=== PATIENT | female | born 1945 | race Caucasian/White ===

== ENCOUNTER 2016-11-07 08:31 | Emergency (ER) | payer MEDICARE | END 2016-11-07 10:35 | disposition home or self-care (01) | LOC: FER 08:31 | DX: S00.83XA Contusion of other part of head, initial encounter (principal); S80.01XA Contusion of right knee, initial encounter; I10 Essential (primary) hypertension; I25.2 Old myocardial infarction; Z23 Encounter for immunization; Z88.5 Allergy status to narcotic agent; Z91.041 Radiographic dye allergy status; Z79.82 Long term (current) use of aspirin; Z79.899 Other long term (current) drug therapy; W19.XXXA Unspecified fall, initial encounter; Y93.01 Activity, walking, marching and hiking; Y92.480 Sidewalk as the place of occurrence of the external cause | CPT/HCPCS: 70450; 90471; 90715; 93005 ==

== ENCOUNTER 2021-01-15 06:09 | Emergency (ER) | payer MEDICARE, OTHER ==
[2021-01-15 07:13] LABS: BASOPHIL 0.6 % (0-2); HCT 45.1 % (37.0-47.0); HGB 14.1 g/dl (12.5-16.0); MCH 29.8 pg (25.0-31.0); MCHC 31.3 g/dL (32.0-36.0); MCV 95.3 fL (78.0-100.0); MONOCYTE 10.1 % (0-12); NRBC 0; PLT 266 K/uL (150-400); RBC 4.73 M/uL (4.20-5.40); RDW 15.1 % (11.5-14.0); WBC 7.1 K/uL (4.0-10.5)
[2021-01-15 07:28] LABS: BILIRUBIN 1+ mg/dL (NEGATIVE); BLOOD TRACE-INTACT Ery/uL (NEGATIVE); CLARITY CLEAR (CLEAR); COLOR YELLOW (YELLOW); GLUCOSE (U) NORMAL (NORMAL); LEUKOCYTES NEGATIVE Leu/uL (NEGATIVE); NITRITE NEGATIVE (NEGATIVE); PROTEIN TRACE (LOW) mg/dL (NEGATIVE); SPECIFIC GRAVITY >=1.030 (1.001-1.030); UROBILINOGEN 0.2 mg/dL (0.2-1.0)
[2021-01-15 07:36] LABS: BACTERIA TRACE
[2021-01-15 07:40] LABS: ALBUMIN 3.9 g/dL (3.4-5.0); BILIRUBIN - TOTAL 0.7 mg/dL (0.2-1.0); CREATININE 1.08 mg/dL (0.51-0.95); GLOBULIN (CALCULATION) 3.3 g/dL; POTASSIUM 4.3 mmol/L (3.5-5.1); TOTAL PROTEIN 7.2 g/dL (6.4-8.2)
[2021-01-15] MEDS ORDERED: AUGMENTIN250 MG PO (08:42)
[2021-01-15] MEDS ORDERED: ONDANSETRON ODT4 MG PO (08:42)
== END 2021-01-15 09:08 | disposition home or self-care (01) ==
LOC: FER 06:09
PROVIDERS: Emergency Medicine
DX: R11.2 Nausea with vomiting, unspecified (principal); R78.81 Bacteremia; Z86.73 Personal history of transient ischemic attack (TIA), and cerebral infarction without residual deficits; Z88.8 Allergy status to other drugs, medicaments and biological substances; Z88.5 Allergy status to narcotic agent
CPT/HCPCS: 36415; 80053; 81001; 83690; 84484; 85025; 87088; 93005

== ENCOUNTER 2021-07-04 10:39 | Day surgery (SDCO) | payer MEDICARE, OTHER ==
[~2021-07-04] VITALS: Ht 165.1 cm; Wt 76.7 kg
[~2021-07-04 10:39] MED LIST: AUGMENTIN250 MG PO; ONDANSETRON ODT4 MG PO
[2021-07-04 11:31] LABS: BASOPHIL 0.6 % (0-2); EOSINOPHIL 0.4 % (0-7); HCT 40.9 % (37.0-47.0); HGB 12.9 g/dl (12.5-16.0); LYMPHOCYTE 20.2 % (15-48); MCH 29.3 pg (25.0-31.0); MCHC 31.5 g/dL (32.0-36.0); MONOCYTE 11.1 % (0-12); MPV 9.5 fL (6.0-9.5); NEUTROPHIL 67.3 % (41-80); NRBC 0; PLT 242 K/uL (150-400); RDW 14.4 % (11.5-14.0); WBC 8.5 K/uL (4.0-10.5)
[2021-07-04 12:11] LABS: ALBUMIN 3.8 g/dL (3.4-5.0); ALKALINE PHOSHATASE 105 U/L (46-116); ALT <6 U/L (14-59); AST 5 U/L (15-37); BILIRUBIN - TOTAL 0.3 mg/dL (0.2-1.0); BUN 16 mg/dL (7-18); BUN/CREAT RATIO (CALC) 15.2 RATIO; CHLORIDE 100 mmol/L (98-107); CO2 (BICARBONATE) 25 mmol/L (21-32); CREATININE 1.05 mg/dL (0.51-0.95); GLOBULIN (CALCULATION) 3.4 g/dL; GLUCOSE 100 mg/dL (74-106); POTASSIUM 3.4 mmol/L (3.5-5.1); TOTAL PROTEIN 7.2 g/dL (6.4-8.2)
[2021-07-04] MEDS ORDERED: NORVASC2.5 M1 PO (20:03)
[2021-07-04] MEDS ORDERED: CARVEDILOL3.125 MG PO (20:03)
[2021-07-04] MEDS ORDERED: ZESTRIL5 MG PO (20:04)
[2021-07-04] MEDS ORDERED: PROZAC20 MG PO (20:04)
[2021-07-04] MEDS ORDERED: BUSPIRONE HCL15 MG PO (20:05)
[2021-07-04 21:04] LABS: MAGNESIUM 2.1 mg/dL (1.8-2.4)
[2021-07-05 06:08] LABS: HGB 13.1 g/dl (12.5-16.0); MCH 29.1 pg (25.0-31.0); MCV 91.1 fL (78.0-100.0); MPV 9.5 fL (6.0-9.5); RBC 4.5 M/uL (4.20-5.40); RDW 14.4 % (11.5-14.0)
[2021-07-05 06:44] LABS: BUN/CREAT RATIO (CALC) 22.5 RATIO; CREATININE 0.89 mg/dL (0.51-0.95); POTASSIUM 3.6 mmol/L (3.5-5.1)
[2021-07-05] MEDS ORDERED: TESSALON PERLE100 MG PO (08:57)
--- NOTE | 2021-07-05 09:16 | NUR ---
ADVISED DR. FRANCOIS PT IS IN OBS. HE STATED THAT HE IS D/C PT HOME THIS DATE.
[2021-07-05] MEDS ORDERED: HYDROCODONE-CH473 ML PO (12:02)
== END 2021-07-05 13:10 | disposition home or self-care (01) ==
LOC: FER 10:39 → FMS 12:54
PROVIDERS: Emergency Medicine; Nurse Practitioner Acute Care; ADMIT Allergy & Immunology Allergy
DX: R55 Syncope and collapse (principal); I49.3 Ventricular premature depolarization; U07.1 COVID-19; I70.0 Atherosclerosis of aorta; I25.10 Atherosclerotic heart disease of native coronary artery without angina pectoris; I25.2 Old myocardial infarction; I10 Essential (primary) hypertension; Z98.61 Coronary angioplasty status; Z90.49 Acquired absence of other specified parts of digestive tract; Z88.5 Allergy status to narcotic agent; Z91.041 Radiographic dye allergy status
CPT/HCPCS: 36415; 70450; 71045; 80048; 80053; 82553; 83735; 84484; 85025; 93005; 94010; 94762; G0378; J1650; U0002

== ENCOUNTER 2021-08-05 10:15 | Emergency (ER) | payer MEDICARE, OTHER ==
[~2021-08-05 10:15] MED LIST changes: +BUSPIRONE HCL15 MG PO; +CARVEDILOL3.125 MG PO; +HYDROCODONE-CH473 ML PO; +NORVASC2.5 M1 PO; +PROZAC20 MG PO; +TESSALON PERLE100 MG PO; +ZESTRIL5 MG PO
[2021-08-05 12:04] LABS: BASOPHIL 0.7 % (0-2); EOSINOPHIL 4.8 % (0-7); HCT 42.3 % (37.0-47.0); HGB 13.3 g/dl (12.5-16.0); LYMPHOCYTE 26.9 % (15-48); MCHC 31.4 g/dL (32.0-36.0); MCV 92.4 fL (78.0-100.0); MPV 9.5 fL (6.0-9.5); NEUTROPHIL 57.9 % (41-80); NRBC 0; PLT 290 K/uL (150-400); RBC 4.58 M/uL (4.20-5.40); RDW 14.8 % (11.5-14.0); WBC 8.7 K/uL (4.0-10.5)
[2021-08-05 12:17] LABS: INR 0.94 (0.9-1.2); PTT 24.9 SECONDS (24.4-34.7)
[2021-08-05 12:19] LABS: D-DIMER 1.24 ug/mLFEU (0.00-0.41)
[2021-08-05 12:29] LABS: ALBUMIN 3.9 g/dL (3.4-5.0); BILIRUBIN - TOTAL 0.3 mg/dL (0.2-1.0); BUN/CREAT RATIO (CALC) 20.7 RATIO; CREATININE 0.82 mg/dL (0.51-0.95); GLOBULIN (CALCULATION) 3.4 g/dL; POTASSIUM 3.9 mmol/L (3.5-5.1); TOTAL PROTEIN 7.3 g/dL (6.4-8.2)
[2021-08-05 13:14] LABS: INFLUENZA A NAA NEGATIVE (NEGATIVE)
[2021-08-05 13:18] LABS: CORONAVIRUS 2019 SARS-COV-2 POSITIVE (NEGATIVE)
== END 2021-08-05 14:00 | disposition home or self-care (01) ==
LOC: FER 10:15
PROVIDERS: Emergency Medicine
DX: R07.89 Other chest pain (principal); U07.1 COVID-19; I10 Essential (primary) hypertension; I25.2 Old myocardial infarction; Z95.5 Presence of coronary angioplasty implant and graft; Z79.899 Other long term (current) drug therapy
CPT/HCPCS: 36415; 36600; 71045; 80053; 82803; 84484; 85025; 85379; 85610; 85730; 93005; U0002